=== PATIENT | male | born 2000 | race Caucasian/White ===

== ENCOUNTER 2020-02-29 08:31 | Emergency (ER) | payer SELFPAY ==
[~2020-02-29] VITALS: Ht 170.2 cm; Wt 101.6 kg
[2020-02-29 08:38] VITALS: Ht 170.2 cm; Wt 101.6 kg
[2020-02-29 11:11] VITALS: BP 132/80
== END 2020-02-29 11:13 | disposition home or self-care (01) ==
LOC: ED 08:31
DX: J45.901 Unspecified asthma with (acute) exacerbation (principal); R07.89 Other chest pain
CPT/HCPCS: 82962; J7512; J7644; Q0092